=== PATIENT | male | born 1965 | race Caucasian/White ===

== ENCOUNTER 2020-08-07 15:23 | Emergency (ER) | payer OTHER ==
[2020-08-07] MEDS ORDERED: Doxycycline 100 MG Cap ONE (15:26)
--- NOTE | 2020-08-07 15:34 | EDM.PDOC ---
ED HPI GENERAL MEDICAL PROBLEM - General Chief Complaint: Skin Complaint Stated Complaint: tick bite Time Seen by Provider: 08/07/20 15:25 Source of Information: Reports: Patient History Limitations: Reports: No Limitations - History of Present Illness INITIAL COMMENTS - FREE TEXT/NARRATIVE: patient presented to the ER with a c/o tick bite to the back. was noticed yesterday and was removed late last night by his significant other - it was noted that erythema and redness has spread beyond the affected area since last night and mildly tender to touch. no fever or chills tick was described as a wood tick - brown in color - Related Data Allergies Allergy/AdvReac Type Severity Reaction Status Date / Time shellfish derived Allergy Airway Verified 08/07/20 15:26 Tightness Home Meds: Home Meds Doxycycline [Vibra-Tabs] 100 mg PO Q12HR #28 tab 08/07/20 [Rx] ED ROS GENERAL - Review of Systems Review Of Systems: See Below Constitutional: Reports: No Symptoms HEENT: Reports: No Symptoms Respiratory: Reports: No Symptoms Cardiovascular: Reports: No Symptoms : Reports: No Symptoms Musculoskeletal: Reports: No Symptoms Neurological: Reports: No Symptoms ED EXAM, SKIN/RASH Exam: See Below Exam Limited By: No Limitations General Appearance: Alert, WD/WN, No Apparent Distress Eye Exam: Bilateral Eye: EOMI Respiratory/Chest: No Respiratory Distress Cardiovascular: Regular Rate, Rhythm GI/Abdominal: Soft, Non-Tender Skin: Erythema (on the back - site of tick bite) Lymphatic: No Adenopathy Departure - Departure Time of Disposition: 15:37 Disposition: Home, Self-Care 01 Condition: Good Clinical Impression: Tick bite of back - Discharge Information *PRESCRIPTION DRUG MONITORING PROGRAM REVIEWED*: Not Applicable *COPY OF PRESCRIPTION DRUG MONITORING REPORT IN PATIENT TANNA: Not Applicable Prescriptions: Doxycycline [Vibra-Tabs] 100 mg PO Q12HR #28 tab Instructions: Tick Bite Information, Adult, [id number] Forms: ED Department Discharge Additional Instructions: - take antibiotics as prescribed for 2 weeks - apply antibiotics ointment on the affected area - tylenol for pain as needed - try to avoid direct sun exposure while on the antibiotics - use sun screen and wear long sleeves - Problem List & Annotations (1) Tick bite of back SNOMED Code(s): 57878323, 511282134 Code(s): S30.860A - INSECT BITE (NONVENOMOUS) OF LOWER BACK AND PELVIS, INIT; W57.XXXA - BIT/STUNG BY NONVENOM INSECT & OTH NONVENOM ARTHROPODS, INIT Status: Acute Priority: Low Qualifiers: Encounter type: initial encounter Qualified Code(s): S30.860A - Insect bite (nonvenomous) of lower back and pelvis, initial encounter; W57.XXXA - Bitten or stung by nonvenomous insect and other nonvenomous arthropods, initial encounter - Problem List Review Problem List Initiated/Reviewed/Updated: Yes - Assessment/Plan Plan: - take antibiotics as prescribed for 2 weeks - apply antibiotics ointment on the affected area - tylenol for pain as needed - try to avoid direct sun exposure while on the antibiotics - use sun screen and wear long sleeves
== END 2020-08-07 16:35 | disposition home or self-care (01) ==
LOC: LB.ED 15:23
DX: S30.860A Insect bite (nonvenomous) of lower back and pelvis, initial encounter (principal); Z91.013 Allergy to seafood; W57.XXXA Bitten or stung by nonvenomous insect and other nonvenomous arthropods, initial encounter
CPT/HCPCS: 99282; A9270-GY

== ENCOUNTER 2022-11-02 01:00 | Emergency (ER) | payer BC ==
[2022-11-02] MEDS ORDERED: Ketorolac 60 MG/2 ML SDV IVPUSH ONE (01:44)
[2022-11-02] MEDS ORDERED: Ketorolac 30 MG/ML SDV ONE (01:51)
[2022-11-02 02:03] LABS: BASOPHILS ABSOLUTE AUTO 0.02 K/uL (0.02-0.10); BASOPHILS PERCENT AUTO 0.3 % (0.0-0.5); EOSINOPHILS ABSOLUTE AUTO 0.14 K/uL (0.04-0.40); HEMOGLOBIN 13.2 g/dL (13.0-18.0); LYMPHOCYTES ABSOLUTE AUTO 0.66 K/uL (1.50-4.00); LYMPHOCYTES PERCENT AUTO 9.6 % (20.0-40.0); MEAN CORPUSCULAR HEMOGLOBIN 28.6 pg (27.0-32.0); MEAN CORPUSCULAR HGB CONC 33.8 g/dL (31.0-35.0); MEAN CORPUSCULAR VOLUME 84 fL (76-96); MEAN PLATELET VOLUME 10.4 fL (6.0-10.0); MONOCYTES ABSOLUTE AUTO 0.78 K/uL (0.20-0.80); MONOCYTES PERCENT AUTO 11.4 % (3.0-10.0); NEUTROPHILS ABSOLUTE AUTO 5.27 K/uL (2.00-7.50); NEUTROPHILS PERCENT AUTO 76.7 % (45.0-70.0); PLATELET COUNT,PLT 193 K/uL (150-400); RED BLOOD CELL COUNT 4.62 M/uL (4.50-6.50); RED CELL DISTRIBUTION WIDTH 13.2 % (11.0-16.0); WHITE BLOOD CELL COUNT,WBC 6.9 K/uL (4.0-11.0)
[2022-11-02 02:13] LABS: A/G RATIO 0.9 (0.8-2.0); ALBUMIN 3.4 g/dL (3.4-5.0); ANION GAP 14.9 mmol/L (5.0-15.0); BILIRUBIN TOTAL 1.1 mg/dL (0.0-1.0); BUN/CREATININE RATIO 7.9 (6-25); CALCIUM 8.2 mg/dL (8.5-10.1); CARBON DIOXIDE,CO2 23.7 mmol/L (21.0-32.0); CREATININE 1.26 mg/dL (0.70-1.30); EST CRCL DRUG DOSING (CG) 74.3 mL/min; POTASSIUM,K 3.6 mmol/L (3.5-5.1)
[2022-11-02] MEDS ORDERED: Orphenadrine 60 MG/2 ML Inj IV ONE (02:18)
[2022-11-02] MEDS ORDERED: Orphenadrine 60 MG/2 ML Inj ONE (02:19)
[2022-11-02] MEDS: diazePAM 5 MG/ML MDV ONE ×2 (03:05→03:06)
[2022-11-02 04:01] VITALS: BP 132/78; PULSE 88
== END 2022-11-02 03:50 | disposition home or self-care (01) ==
LOC: LB.ED 01:00
DX: M62.830 Muscle spasm of back (principal); I10 Essential (primary) hypertension; Z91.013 Allergy to seafood
CPT/HCPCS: 36415; 71045; 80053; 85025; 93005; 96374; 96375; 99284-25; A0425; A0429; J1885; J2360; J3360; U0002